=== PATIENT | female | born 1955 | race Caucasian/White ===

== ENCOUNTER 2020-06-04 07:13 | Emergency (ER) | payer MEDICARE, MEDICAID ==
[~2020-06-04] VITALS: Ht 167.6 cm; Wt 86.2 kg
[2020-06-04 07:58] VITALS: BP 143/70
[2020-06-04] MEDS ORDERED: cefTRIAXone SOD 1,000 MG VL IM ONE (09:00)
== END 2020-06-04 09:27 | disposition home or self-care (01) ==
LOC: ER 07:13
DX: L03.114 Cellulitis of left upper limb (principal); S60.512D Abrasion of left hand, subsequent encounter; Z48.01 Encounter for change or removal of surgical wound dressing
CPT/HCPCS: 96372; 99283; J0696